=== PATIENT | male | born 1940 | race Caucasian/White ===

== ENCOUNTER → 2016-09-25 | Outpatient (CLI) | payer OTHER | END | disposition home or self-care (01) | LOC: C.PATHSPEC 17:43 | PROVIDERS: ATTEND Urology | DX: R97.20 Elevated prostate specific antigen [PSA] (principal); C61 Malignant neoplasm of prostate; I10 Essential (primary) hypertension ==

== ENCOUNTER → 2016-09-25 | Outpatient (CLI) | payer OTHER ==
[2016-09-25 08:33] LABS: INR 1.2 (0.9-1.1); PROTHROMBIN TIME (PATIENT) 12.6 SECONDS (9.0-12.0)
== END | disposition home or self-care (01) ==
LOC: C.LAB 07:54
PROVIDERS: ATTEND Urology
DX: I10 Essential (primary) hypertension (principal)

== ENCOUNTER → 2016-10-08 | Outpatient (CLI) | payer OTHER ==
--- NOTE | 2016-10-08 14:54 | DIAGNOSTIC IMAGING REPORT ---
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 COMPARISON: None. FINDINGS: Symmetric areas of mild radiotracer uptake seen within the shoulders, sternoclavicular joints, wrists, and feet are consistent with degenerative change. Mild radiotracer uptake along the right side of the upper cervical spine and L4-L5 level posteriorly also likely represents degenerative change. No suspicious areas of radiotracer uptake seen within the axial or appendicular skeleton to suggest metastatic disease. IMPRESSION: No evidence for metastatic disease within the visualized osseous structures. Electronically signed by: Vaibhav Manuel M.D. 10/08/2016 2:52 PM Dictated Date/Time: 10/08/2016 2:50 PM
== END | disposition home or self-care (01) ==
LOC: C.NUCL 10:12
PROVIDERS: ATTEND Urology
DX: C61 Malignant neoplasm of prostate (principal)

== ENCOUNTER → 2018-02-04 | Outpatient (CLI) | payer OTHER | END | disposition home or self-care (01) | LOC: C.LAB 11:33 | PROVIDERS: ATTEND Urology | DX: C61 Malignant neoplasm of prostate (principal) ==